=== PATIENT | female | born 1950 | race Caucasian/White ===

== ENCOUNTER 2018-12-04 15:09 | Emergency (ER) | payer MEDICARE, BC ==
--- NOTE | 2018-12-04 15:57 | EDM.PDOC ---
ED HPI GENERAL MEDICAL PROBLEM - General Chief Complaint: Cardiovascular Problem Stated Complaint: IRREGULAR HEARTBEAT Time Seen by Provider: 12/04/18 15:57 Source of Information: Reports: Patient History Limitations: Reports: No Limitations - History of Present Illness INITIAL COMMENTS - FREE TEXT/NARRATIVE: pt did work out today with the [employer] and it was during that time that she noticed the irregularity. She did not have chest pain or sob. She was not liteheaDED EXCEPT WHEN SHE WAS WORKING VERY HARD. Onset: Today Duration: Hour(s): Location: Reports: Chest, Other ( SHE NOTICED THE HEART IRREGULARITY. ) Quality: Reports: Ache Severity: Mild Associated Symptoms: Reports: Other ( IRREGULAR HEART BEAT. ) - Related Data Allergies Allergy/AdvReac Type Severity Reaction Status Date / Time amoxicillin Allergy Rash Verified 07/03/18 09:40 celecoxib [From Celebrex] Allergy Rash Verified 07/03/18 09:40 Sulfa (Sulfonamide Allergy Cannot Verified 07/03/18 09:40 Antibiotics) Remember oxcarbazepine AdvReac Nausea Verified 07/03/18 09:40 [From Trileptal] Home Meds: Home Meds Levothyroxine Sodium 0.175 mcg PO ASDIRECTED 02/12/14 [History] Primidone 250 mg PO BID 02/12/14 [History] Propranolol [Inderal] 20 mg PO BID 02/12/14 [History] amLODIPine Besylate [Amlodipine Besylate] 10 mg PO DAILY 02/12/14 [History] levETIRAcetam [Levetiracetam] 500 mg PO BID 02/12/14 [History] Carbidopa/Levodopa [Sinemet Cr 25-100 mg] 1.5 tab PO 5XDAY 01/30/15 [History] Fluticasone Propionate [Flonase] 2 spray NS DAILY 02/01/16 [History] Levothyroxine 150 mcg PO ASDIRECTED 02/01/16 [History] Pantoprazole [Protonix] 40 mg PO DAILY 02/01/16 [History] Budesonide/Formoterol Fumarate [Symbicort 80-4.5 Mcg Inhaler] 2 puff IH BID PRN 07/03/18 [History] Clobetasol [Temovate 0.05% Oint] 1 applic TOP DAILY 07/03/18 [History] Fluocinolone Acetonide 1 applic TP DAILY 07/03/18 [History] Loratadine 10 mg PO TID 07/03/18 [History] Past Medical History HEENT History: Reports: Allergic Rhinitis Cardiovascular History: Reports: Hypertension Respiratory History: Reports: Other (See Below) Other Respiratory History: chronic cough Gastrointestinal History: Reports: None 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: Musculoskeletal History: Reports: None Neurological History: Reports: Parkinson's, Seizure Endocrine/Metabolic History: Reports: Hypothyroidism - Past Surgical History Cardiovascular Surgical History: Reports: None GI Surgical History: Reports: Colonoscopy Endocrine Surgical History: Reports: None Neurological Surgical History: Reports: None Musculoskeletal Surgical History: Reports: Arthroscopic Knee, Other (See Below) ED ROS GENERAL - Review of Systems Review Of Systems: See Below Constitutional: Reports: No Symptoms HEENT: Reports: No Symptoms Respiratory: Reports: No Symptoms Cardiovascular: Reports: Palpitations, Other (IRREGULAR HEAR BEAT. ) Endocrine: Reports: No Symptoms GI/Abdominal: Reports: No Symptoms : Reports: No Symptoms Musculoskeletal: Reports: No Symptoms ED EXAM, GENERAL - Physical Exam Exam: See Below Free Text/Narrative:: pt arrived with a feeling that her heart is very irrwegular. This started while she was in her exercise program today. Exam Limited By: No Limitations General Appearance: Alert, No Apparent Distress, Anxious Ears: Normal TMs Nose: Normal Inspection Throat/Mouth: Normal Inspection Head: Atraumatic Neck: Normal Inspection Respiratory/Chest: No Respiratory Distress Cardiovascular: Other (pt is skepping beats and she is feeling ) GI/Abdominal: Soft, Non-Tender (Female) Exam: Deferred Rectal (Female) Exam: Deferred Back Exam: Normal Inspection Extremities: Normal Inspection Neurological: Alert, Oriented, Normal Cognition Psychiatric: Normal Affect Course - Vital Signs Last Recorded V/S: Last Vital Signs Temp 35.7 C 12/04/18 16:05 Pulse 74 12/04/18 17:53 Resp 11 L 12/04/18 17:53 BP 135/96 H 12/04/18 17:53 Pulse Ox 98 12/04/18 17:53 - Orders/Labs/Meds Orders: Active Orders 24 hr Category Date Time Status EKG Documentation Completion [RC] ASDIRECTED Care 12/04/18 15:45 Active Sodium Chloride 0.9% [Normal Saline] 1,000 ml Med 12/04/18 16:45 Active IV ASDIRECTED EKG 12 Lead [EK] Routine Ther 12/04/18 15:45 Ordered Medication Orders Sodium Chloride (Normal Saline) 1,000 mls @ 999 mls/hr IV ASDIRECTED DANIEL Last Admin: 12/04/18 17:16 Dose: 999 mls/hr Labs: Laboratory Tests 12/04/18 12/04/18 12/04/18 Range/Units 15:47 15:47 15:47 WBC 6.8 (4.5-11.0) K/uL RBC 4.13 (3.30-5.50) M/uL Hgb 13.5 (12.0-15.0) g/dL Hct 42.5 (36.0-48.0) % MCV 103 H (80-98) fL MCH 33 H (27-31) pg MCHC 32 (32-36) % Plt Count 128 L (150-400) K/uL Neut % (Auto) 63 (36-66) % Lymph % (Auto) 23 L (24-44) % Darke % (Auto) 9 H (2-6) % Eos % (Auto) 5 H (2-4) % Baso % (Auto) 1 (0-1) % Sodium 140 (140-148) mmol/L Potassium 3.9 (3.6-5.2) mmol/L Chloride 103 (100-108) mmol/L Carbon Dioxide 30 (21-32) mmol/L Anion Gap 7.4 (5.0-14.0) mmol/L BUN 21 H (7-18) mg/dL Creatinine 1.0 (0.6-1.0) mg/dL Est Cr Clr Drug Dosing 55.49 mL/min Estimated GFR (MDRD) 55 L (>60) Glucose 107 H (74-106) mg/dL Calcium 8.8 (8.5-10.1) mg/dL Magnesium (1.8-2.4) mg/dL Total Bilirubin 0.2 (0.2-1.0) mg/dL AST 22 (15-37) U/L ALT 10 L (12-78) U/L Alkaline Phosphatase 116 (46-116) U/L Troponin I < 0.017 (0.000-0.056) ng/mL Total Protein 6.9 (6.4-8.2) g/dL Albumin 3.5 (3.4-5.0) g/dL Globulin 3.4 (2.3-3.5) g/dL Albumin/Globulin Ratio 1.0 L (1.2-2.2) TSH, Ultra Sensitive 1.019 (0.358-3.740) uIU/mL Urine Color Urine Appearance Urine pH (4.5-8.0) Ur Specific [place] (1.008-1.030) Urine Protein (NEGATIVE) mg/dL Urine Glucose (UA) (NEGATIVE) mg/dL Urine Ketones (NEGATIVE) mg/dL Urine Occult Blood (NEGATIVE) Urine Nitrite (NEGATIVE) Urine Bilirubin (NEGATIVE) Urine Urobilinogen (NORMAL) mg/dL Ur Leukocyte Esterase (NEGATIVE) Urine RBC (0-5) Urine WBC (0-5) Ur Epithelial Cells Amorphous Sediment Urine Bacteria Urine Mucus 12/04/18 12/04/18 Range/Units 15:50 16:43 WBC (4.5-11.0) K/uL RBC (3.30-5.50) M/uL Hgb (12.0-15.0) g/dL Hct (36.0-48.0) % MCV (80-98) fL MCH (27-31) pg MCHC (32-36) % Plt Count (150-400) K/uL Neut % (Auto) (36-66) % Lymph % (Auto) (24-44) % Darke % (Auto) (2-6) % Eos % (Auto) (2-4) % Baso % (Auto) (0-1) % Sodium (140-148) mmol/L Potassium (3.6-5.2) mmol/L Chloride (100-108) mmol/L Carbon Dioxide (21-32) mmol/L Anion Gap (5.0-14.0) mmol/L BUN (7-18) mg/dL Creatinine (0.6-1.0) mg/dL Est Cr Clr Drug Dosing mL/min Estimated GFR (MDRD) (>60) Glucose (74-106) mg/dL Calcium (8.5-10.1) mg/dL Magnesium 2.2 (1.8-2.4) mg/dL Total Bilirubin (0.2-1.0) mg/dL AST (15-37) U/L ALT (12-78) U/L Alkaline Phosphatase (46-116) U/L Troponin I (0.000-0.056) ng/mL Total Protein (6.4-8.2) g/dL Albumin (3.4-5.0) g/dL Globulin (2.3-3.5) g/dL Albumin/Globulin Ratio (1.2-2.2) TSH, Ultra Sensitive (0.358-3.740) uIU/mL Urine Color Yellow Urine Appearance Clear Urine pH 6.0 (4.5-8.0) Ur Specific [place] 1.005 L (1.008-1.030) Urine Protein Negative (NEGATIVE) mg/dL Urine Glucose (UA) Normal (NEGATIVE) mg/dL Urine Ketones Negative (NEGATIVE) mg/dL Urine Occult Blood Negative (NEGATIVE) Urine Nitrite Negative (NEGATIVE) Urine Bilirubin Negative (NEGATIVE) Urine Urobilinogen Normal (NORMAL) mg/dL Ur Leukocyte Esterase Negative (NEGATIVE) Urine RBC Not seen (0-5) Urine WBC Not seen (0-5) Ur Epithelial Cells Not seen Amorphous Sediment Not seen Urine Bacteria Not seen Urine Mucus Few Meds: Medications Generic Name Dose Route Start Last Admin Trade Name Freq PRN Reason Stop Dose Admin Sodium Chloride 1,000 mls @ 999 mls/hr 12/04/18 16:45 12/04/18 17:16 Normal Saline IV 999 mls/hr ASDIRECTED DANIEL Administration Discontinued Medications Generic Name Dose Route Start Last Admin Trade Name Freq PRN Reason Stop Dose Admin Metoprolol Tartrate 12.5 mg 12/04/18 16:46 12/04/18 17:16 Lopressor PO 12/04/18 16:47 12.5 mg ONETIME ONE Administration - Re-Assessments/Exams Free Text/Narrative Re-Assessment/Exam: 12/04/18 18:12 pt has normal electrolytes, her mag level is normal Her ekg shows no acute findings, she is having frequent pacs Departure - Departure Time of Disposition: 18:15 Disposition: Home, Self-Care 01 Condition: Fair Clinical Impression: Atrial premature beats, Dehydration Referrals: Mp Ennis, [employer]ER [Primary Care Provider] - Forms: ED Department Discharge Care Plan Goals: avoid caffeine and stimulants, push fluids, appt with Mp Fajardo saturday or sat -- pt may need a holter monitor. - My Orders Last 24 Hours: My Active Orders 12/04/18 15:45 EKG Documentation Completion [RC] ASDIRECTED EKG 12 Lead [EK] Routine 12/04/18 16:45 Sodium Chloride 0.9% [Normal Saline] 1,000 ml IV ASDIRECTED - Assessment/Plan Last 24 Hours: My Active Orders 12/04/18 15:45 EKG Documentation Completion [RC] ASDIRECTED EKG 12 Lead [EK] Routine 12/04/18 16:45 Sodium Chloride 0.9% [Normal Saline] 1,000 ml IV ASDIRECTED
--- NOTE | 2018-12-04 16:18 | CRLCR ---
INDICATION: irregular heart beat CHEST, ONE VIEW An AP radiograph of the chest was performed. Comparison: 01/02/2016. The lungs appear clear and no pleural effusions are identified. The cardiomediastinal silhouette and pulmonary vasculature appear normal, as do the visualized bones. IMPRESSION: No acute intrathoracic abnormality identified. NALDO DOSHI MD [facility] Dictated by: Luis Doshi MD @ 12/04/2018 16:16:29 (Electronically Signed)
[2018-12-04] MEDS ORDERED: Sodium Chloride 0.9% 1,000 ML IV SCH (16:45)
[2018-12-04] MEDS ORDERED: Metoprolol Tartrate 25 MG Tab PO ONE (16:46)
[2018-12-04 17:53] VITALS: BP 135/96
== END 2018-12-04 18:46 | disposition home or self-care (01) ==
LOC: JP.ED 15:09
DX: I49.1 Atrial premature depolarization (principal); E86.0 Dehydration; I10 Essential (primary) hypertension; Z88.1 Allergy status to other antibiotic agents; Z88.2 Allergy status to sulfonamides; Z88.8 Allergy status to other drugs, medicaments and biological substances; Z79.899 Other long term (current) drug therapy
CPT/HCPCS: 36415; 71045; 80053; 81001; 83735; 84443; 84484; 85025; 93005; 96360; 99284; A9270; J7030; 93010

== ENCOUNTER 2019-09-03 23:46 | Emergency (ER) | payer MEDICARE, BC ==
[2019-09-04 00:03] VITALS: BP 132/92; PULSE 73
--- NOTE | 2019-09-04 00:36 | EDM.PDOC ---
ED HPI GENERAL MEDICAL PROBLEM - General Chief Complaint: Respiratory Problem Stated Complaint: MEDICAL VIA [facility] Time Seen by Provider: 09/04/19 00:00 Source of Information: Reports: Patient, EMS, Family History Limitations: Reports: No Limitations - History of Present Illness INITIAL COMMENTS - FREE TEXT/NARRATIVE: 69-year-old female that has had a lingering persistent laryngitis for the past 2 months, persistent upper airway cough that has not improved after a course of antibiotics and topical steroids. Tonight she felt a "plug" and tried to cough it up, it got stuck in her throat and for a few minutes she could not breathe. She became stridorous and panicky and called the ambulance. Eventually she did cough up a small plug of moderately dry sputum, and now feels back to baseline. Onset: Sudden Duration: Hour(s): (Within the last hour) Associated Symptoms: Reports: Other (Persistent upper airway irritation and cough) Treatments [employer]: Reports: See EMS Report - Related Data Allergies Allergy/AdvReac Type Severity Reaction Status Date / Time amoxicillin Allergy Rash Verified 05/05/19 08:44 celecoxib [From Celebrex] Allergy Rash Verified 05/05/19 08:44 Sulfa (Sulfonamide Allergy Cannot Verified 05/05/19 08:44 Antibiotics) Remember oxcarbazepine AdvReac Nausea Verified 05/05/19 08:44 [From Trileptal] Home Meds: Home Meds Levothyroxine Sodium 25 mcg PO ASDIRECTED 02/12/14 [History] Primidone 250 mg PO BID 02/12/14 [History] Propranolol [Inderal] 20 mg PO BID 02/12/14 [History] amLODIPine Besylate [Amlodipine Besylate] 10 mg PO DAILY 02/12/14 [History] levETIRAcetam [Levetiracetam] 500 mg PO BID 02/12/14 [History] Carbidopa/Levodopa [Sinemet Cr 25-100 mg] 1.5 tab PO 5XDAY 01/30/15 [History] Fluticasone Propionate [Flonase] 2 spray NS DAILY PRN 02/01/16 [History] Levothyroxine 150 mcg PO ASDIRECTED 02/01/16 [History] Clobetasol [Temovate 0.05% Oint] 1 applic TOP DAILY 07/03/18 [History] Loratadine 10 mg PO BID 07/03/18 [History] Calcium Carb/Magnesium Oxid/D3 [Calcium Magnesium + D] 4 tab PO DAILY 05/01/19 [ History] Levalbuterol Tartrate [Xopenex Hfa] 2 puff IH Q4H PRN 05/01/19 [History] [place]-3S/DHA/Epa/Fish Oil [[place]-3 Fish Oil 1,000 mg Sfgl] 1 each PO DAILY 05/01 [History] Budesonide/Formoterol Fumarate [Symbicort 160-4.5 Mcg Inhaler] 1 puff INH ACBREAKFAST PRN 08/11/19 [History] Past Medical History HEENT History: Reports: Allergic Rhinitis, Impaired Vision Cardiovascular History: Reports: Hypertension Respiratory History: Reports: Other (See Below) Other Respiratory History: chronic cough Gastrointestinal History: Reports: None Genitourinary History: Reports: None 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 stress fracture right hip Neurological History: Reports: Parkinson's, Seizure Psychiatric History: Reports: None Endocrine/Metabolic History: Reports: Hypothyroidism Hematologic History: Reports: None Immunologic History: Reports: None Oncologic (Cancer) History: Reports: None Dermatologic History: Reports: None - Infectious Disease History Infectious Disease History: Reports: Chicken Pox, Shingles - Past Surgical History Cardiovascular Surgical History: Reports: None GI Surgical History: Reports: Colonoscopy Endocrine Surgical History: Reports: None Neurological Surgical History: Reports: None Musculoskeletal Surgical History: Reports: Arthroscopic Knee, Other (See Below) Other Musculoskeletal Surgeries/Procedures:: pins in right wrist Social & Family History - Family History Family Medical History: Noncontributory - Tobacco Use Smoking Status *Q: Never Smoker - Caffeine Use Caffeine Use: Reports: Coffee - Recreational Drug Use Recreational Drug Use: No ED ROS GENERAL - Review of Systems Review Of Systems: See Below Constitutional: Denies: Fever, Chills HEENT: Reports: Other (Throat irritation) Respiratory: Reports: Shortness of Breath, Cough GI/Abdominal: Denies: Nausea, Vomiting Skin: Reports: No Symptoms Neurological: Denies: Headache Psychiatric: Reports: No Symptoms ED EXAM, GENERAL - Physical Exam Exam: See Below Exam Limited By: No Limitations General Appearance: Alert, No Apparent Distress Throat/Mouth: Normal Inspection Head: Atraumatic Neck: Supple, Non-Tender Respiratory/Chest: No Respiratory Distress, Lungs Clear Neurological: Alert, Oriented Psychiatric: Normal Affect, Normal Mood Course - Vital Signs Last Recorded V/S: Last Vital Signs Temp 96.8 F 09/03/19 23:58 Pulse 73 09/03/19 23:58 Resp 16 09/03/19 23:58 BP 132/92 H 09/03/19 23:58 Pulse Ox 98 09/03/19 23:58 - Re-Assessments/Exams Free Text/Narrative Re-Assessment/Exam: 09/04/19 00:34 I think this patient had a temporary upper airway obstruction and stridor, and if this becomes recurring or worsens and ENT is going to become a fairly urgent consultation needed. I asked her to talk to her primary provider tomorrow to see if he can get this set up. She can return anytime if symptoms recur. Departure - Departure Time of Disposition: 00:43 Disposition: Home, Self-Care 01 Clinical Impression: Laryngeal stridor - Discharge Information Instructions: Shortness of Breath, Adult, [id number] Referrals: Mp Ennis NP [Primary Care Provider] - Forms: ED Department Discharge Care Plan Goals: Continue current treatments, discuss an ENT referral with your primary provider or possibly a surgical bronchoscopy may be quicker. Stay hydrated, and return anytime if symptoms recur or you develop other concerns. Sepsis Event Note - Evaluation Sepsis Screening Result: No Definite Risk - Focused Exam Vital Signs: Vital Signs Temp Pulse Resp BP Pulse Ox 09/03/19 23:58 96.8 F 73 16 132/92 H 98 Date Exam was Performed: 09/04/19 Time Exam was Performed: 00:49
== END 2019-09-04 00:43 | disposition home or self-care (01) ==
LOC: JP.ED 23:46
DX: R06.1 Stridor (principal); I10 Essential (primary) hypertension; E03.9 Hypothyroidism, unspecified; G20 Parkinson's disease; Z79.899 Other long term (current) drug therapy; Z88.1 Allergy status to other antibiotic agents; Z88.2 Allergy status to sulfonamides; Z88.8 Allergy status to other drugs, medicaments and biological substances
CPT/HCPCS: 99282; 99285

== ENCOUNTER 2025-08-03 14:58 | Emergency (ER) | payer MEDICARE, BC ==
[2025-08-03 15:27] VITALS: BP 168/93; PULSE 73
[2025-08-03 16:58] LABS: BASOPHILS ABSOLUTE AUTO 0.05 K/uL (0.00-0.10); BASOPHILS PERCENT AUTO 0.9 % (0.1-1.3); EOSINOPHILS ABSOLUTE AUTO 0.22 K/uL (0.00-0.40); EOSINOPHILS PERCENT AUTO 4.2 % (0.0-5.4); IMMATURE GRAN PERCENT AUTO 0.2 % (0.0-0.7); LYMPHOCYTES ABSOLUTE AUTO 2.27 K/uL (0.8-3.3); LYMPHOCYTES PERCENT AUTO 43.1 % (11.4-47.7); MONOCYTES ABSOLUTE AUTO 0.54 K/uL (0.20-0.90); MONOCYTES PERCENT AUTO 10.2 % (3.3-12.6); NEUTROPHILS ABSOLUTE AUTO 2.18 K/uL (1.0-7.6); NEUTROPHILS PERCENT AUTO 41.4 % (40.0-78.1); PLATELET COUNT,PLT 140 K/uL (130-375); RED BLOOD CELL COUNT 4.20 M/uL (3.77-5.24); WHITE BLOOD CELL COUNT,WBC 5.3 K/uL (3.2-11.0)
[2025-08-03 17:08] LABS: IMMATURE GRAN ABSOLUTE AUTO 0.01 K/uL (0.00-0.23)
[2025-08-03 17:19] LABS: ALANINE AMINOTRANSFERASE,ALT 13 U/L (12-78); ASPARTATE AMNIOTRANSFERASE,AST 17 U/L (15-37); BILIRUBIN TOTAL 0.2 mg/dL (0.2-1.0); BLOOD UREA NITROGEN,BUN 16 mg/dL (7-18); CARBON DIOXIDE,CO2 31 mmol/L (21-32); CHLORIDE,CL 105 mmol/L (100-108); CREATININE 0.8 mg/dL (0.6-1.0); EST CRCL DRUG DOSING (CG) 62.52 mL/min; ESTIMATED GFR 76 mL/min (>60); GLUCOSE RANDOM 85 mg/dL (74-106); POTASSIUM,K 3.8 mmol/L (3.6-5.2); PROTEIN TOTAL,TP 7.2 g/dL (6.4-8.2); SODIUM,NA 142 mmol/L (140-148)
[2025-08-03 17:21] LABS: A/G RATIO 1.0 (1.2-2.2)
== END 2025-08-03 17:41 | disposition home or self-care (01) ==
LOC: JP.ED 14:58
DX: M62.50 Muscle wasting and atrophy, not elsewhere classified, unspecified site (principal); R53.81 Other malaise; I10 Essential (primary) hypertension; E78.00 Pure hypercholesterolemia, unspecified; Z88.2 Allergy status to sulfonamides; Z88.8 Allergy status to other drugs, medicaments and biological substances; Z79.890 Hormone replacement therapy; Z79.899 Other long term (current) drug therapy; Z87.891 Personal history of nicotine dependence
CPT/HCPCS: 36415; 71046; 71046-26; 80053; 85025; 99285